=== PATIENT | female | born 1995 | race Hispanic/Latino ===

== ENCOUNTER → 2018-09-02 17:21 | Outpatient (CLI) | payer OTHER, SELFPAY ==
--- NOTE | 2018-09-02 | DI.MRI.S_ITS ---
PROCEDURE: MR HAND LT WO CON INDICATIONS: PAIN IN LEFT FINGERS TECHNIQUE: Noncontrast oblique coronal T1 spin echo and T2 fast spin echo with fat saturation, axial and sagittal T2 fast spin echo with fat saturation, through the thumb. COMPARISON: None. FINDINGS: Image quality: Excellent. Bones: The bones are normally aligned, without marrow contusions or fractures. No intra-osseous lesions. First carpometacarpal joint: On sagittal images, the dorsal radial ligament and posterior oblique ligament appear intact. The intermetacarpal ligament between the 1st and 2nd metacarpal bases also appears intact. On the volar aspect, the deep and superficial layers of the anterior oblique ligament appear intact. First metacarpophalangeal joint: There is thickening of radial and ulnar collateral ligaments of first MCP joint with internal fluid signal particularly near its proximal insertion suggestive of ligament sprain/partial thickness tear. Overlying fibers of adductor pollicis brevis tendon and adductor pollicis muscle are grossly intact. The aponeurosis of the adductor pollicis muscle also appears normal. The volar plate appears intact on sagittal images, situated between the radial and ulnar sesamoids. Thenar muscles: The superficial abductor pollicis longus muscle appears normal, with tendon inserting on the radial base of the first proximal phalanx. The opponens pollicis muscle also appears normal, inserting on the first metacarpal shaft. The flexor pollicis brevis muscle appears normal, with tendon inserting on the radial sesamoid and first proximal phalanx. The oblique and transverse heads of the adductor pollicis muscle appear normal, inserting on the ulnar sesamoid and proximal phalanx as part of the adductor aponeurosis. Flexor pollicis longus tendon: Tendon fibers appear intact, coursing between the thenar eminence muscles and the adductor pollicis muscle, and inserting on the volar base of the distal phalanx. The first annular davide at the level of the first MCP joint appears intact, intimate with the sesamoids. The second annular davide at the level of interphalangeal joint also appears intact. The oblique annular davide between the 1st and 2nd annular pulleys appears intact, with ulnar proximal attachment intimate with the adductor aponeurosis. The variable annular davide also appears intact between the first annular and oblique annular pulleys. Extensor tendons: The extensor pollicis brevis tendon appears intact, coursing radial to the extensor pollicis longus tendon and inserting on the dorsal base of the proximal phalanx, blending with the dorsal plate of the first MCP joint. The extensor pollicis longus tendon appears intact as it inserts on the dorsal base of the distal phalanx. The sagittal band at the level of the first MCP joint appears intact. The abductor pollicis longus tendon slips appear intact at the radial aspect of the proximal phalanx, proximal to the abductor pollicis brevis tendon insertion. Miscellaneous: No ganglion cysts. IMPRESSION: 1. Findings consistent with sprain/low-grade intrasubstance partial thickness tear involving both radial and ulnar collateral ligaments of first MCP joint near to proximal insertion. No full-thickness ligamentous rupture. 2. First CMC joint capsule is grossly intact. 3. No marrow edema. No fracture or dislocation. Dictated by: Zoran Cobb M.D. on 09/03/2018 at 13:54 Approved by: Zoran Cobb M.D. on 09/03/2018 at 14:09
== END ==
PROVIDERS: PCP Student in an Organized Health Care Education/Training Program; Visit Provider Orthopaedic Surgery
DX: M79.645 Pain in left finger(s) (principal); S63.642A Sprain of metacarpophalangeal joint of left thumb, initial encounter
CPT/HCPCS: 73218